=== PATIENT | female | born 1990 | race Caucasian/White ===

== ENCOUNTER 2021-03-15 21:51 | Outpatient (CLI) | payer OTHER ==
[~2021-03-15] VITALS: Ht 162.6 cm; Wt 64.0 kg
[2021-03-15 22:19] VITALS: BP 141/75
[2021-03-15] MEDS ORDERED: PRENTAB9 PO (22:33)
[2021-03-15 22:45] VITALS: BP 125/66
[2021-03-15] MEDS ORDERED: FLUCONAZOLE 100 MG TAB PO ONE (23:10)
--- NOTE | 2021-03-15 23:12 | IPNPDOC ---
Text Note Date of Service The patient was seen on 03/15/21. NOTE 31 yo at 27+3 weeks gestation presented to L&D with the complaint of vaginal spotting this evening and decreased movement. She denies any heavy bleeding or leakage of fluid. She denies any contractions pain. Chaperoned by RN Vitals - VSS, afebrile, normotensive, non tachycardic General - AAXO3, laying in bed, NAD Abdomen - Gravid uterus appropriate size for gestational age. No fundal tenderness Pelvic - Normal external genitalia. Speculum inserted into the vagina and the cervix was visualized. Cervix closed. White discharge noted in vault. No bleeding or blood. Swab obtained. Speculum removed. Cervix cl/thick/high to digital exam. FHR tracing - Cat I and appropriate for gestational age with moderate variability, 10X10 accels, no decels Bedside TAUS ( anatomy not assessed): Viable SIUP in cephalic presentation. +FCA. ARTURO 18.2cm. +gross movement. Microscopy - Notable for yeast. UA - Clean catch, 2+ bacteria Diflucan X1 PO given for yeast infection. UA suspicious for UTI. Will order script of EVERFANSd to pick up driver at [place] tomorrow while we await culture results. Patient felt movement in triage and was reassured. Reassuring tracing and normal ARTURO. No signs of labor. No blood or active bleeding, however given her spotting and Rh negative status she will go to the lab tomorrow for Rhogam draw. Order is already in place. Follow up in the office already scheduled for next week. She will be contacted when Rhogam injection is ready. Discharged with return precautions. All questions answered. 40 minutes SARAHI Murphy DO Mar 15, 2021 23:12
== END 2021-03-15 23:38 | disposition home or self-care (01) ==
LOC: M LDO 21:51
PROVIDERS: ATTEND Obstetrics & Gynecology
DX: O36.8120 Decreased fetal movements, second trimester, not applicable or unspecified (principal); Z3A.27 27 weeks gestation of pregnancy; O23.42 Unspecified infection of urinary tract in pregnancy, second trimester
CPT/HCPCS: 59025; 76815; 81001; 87086; G0378; G0463

== ENCOUNTER 2021-06-16 23:37 | Inpatient (IN) | payer OTHER ==
[~2021-06-16] VITALS: Ht 162.6 cm; Wt 72.5 kg
[~2021-06-16 23:37] MED LIST: PRENTAB9 PO
[2021-06-17] VITALS (27 sets, daily range): BP systolic 106–159; BP diastolic 50–78
[2021-06-17] MEDS ORDERED: HOME MED LIST COMPLETE! XX SCH
[2021-06-17 00:45] LABS: HEMATOCRIT 36.8 % (36.0-47.0); HEMOGLOBIN 12.8 g/dl (12.0-15.5); MEAN CORPUSCULAR HEMOGLOBIN 30.5 pg (27.0-33.0); MEAN CORPUSCULAR HGB CONC 34.8 g/dl (32.0-36.5); MEAN CORPUSCULAR VOLUME 87.6 fl (80.0-96.0); PLATELET COUNT, AUTOMATED 170 10^3/uL (150-450); WHITE BLOOD COUNT 11.9 10^3/uL (4.0-10.0)
[2021-06-17] MEDS ORDERED: PENICILLIN G POTASSIUM IV 5 MU in D5W MINI-BAG PLUS 100 ML IV STA (01:41)
[2021-06-17] MEDS ORDERED: LACTATED RINGER'S 1000 ML IV STA (01:41)
[2021-06-17] MEDS ORDERED: OXYTOCIN DRIP 30 UNITS in IV 1 EA IV PRN (01:45)
[2021-06-17] MEDS ORDERED: LIDOCAINE 1% MDV 20ML VIAL INFIL PRN (01:45)
[2021-06-17] MEDS ORDERED: FENTANYL 2MCG/ML ROPIVACAINE 0.2% IN 0.9% NACL 100ML IVBAG As Ordered ONE (02:15)
--- NOTE | 2021-06-17 02:39 | HPEPDOC ---
Obstetrical History & Physical General Date of Admission Jun 17, 2021 at 00:15 History of Present Illness Pt presented to labor and delivery with c/o regular contractions and SROM with meconium. Chief Complaint: Contractions, term, Rupture of membranes Information Provided By: Patient Age: 31 : 3 Term: 0 Pre-term: 0 Abortions: 2 Livin Care Care: Good Care Dating Final EDC: Jun 11, 2021 Final EDC for Daily Update: Jun 11, 2021 Final EDC by: LMP LMP: Sep 04, 2020 Estimated Date of Confinement: Jul 11, 2021 EGA at Admission: 40 (+5) Antepartum Course Diagnos(e)s Gilbert syndrome Height (inches): 64 Pre- weight (lbs.): 111 Admission Weight (lbs.): 160 Change in Weight (lbs.): 49 Past Medical History Past Obstetrical History : Past Obstetrical History: Multigravida (2018 11wk SAB, 2018 5wk SAB) 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: 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 (x2) Past Medical History Medical History Gilbert Syndrome RH negative Surgical History: Dilatation and Curettage, [place] teeth Family History Significant Family History: Hypertension (father, MGF), Vascular disease (PGM) Social History Marital Status: Family situation: Spouse/partner home Psychosocial History: No pertinent psych hx * Smoker: non-smoker Alcohol: Denies Drugs: denies Abuse Violence Screening Have you been hit/kicked/slapp: No Have you been sexually assault: No Imunizations Tdap status: current Influenza Status: current Allergies Coded Allergies: No Known Allergies (Unverified , 06/16/21) Medications Scheduled No.137/Iron/Folic Acd ( Vitamin Tablet) 1 Each Tablet, 1 TAB PO DAILY Physical Examination Physical Examination GENERAL: Alert and oriented times three. BREAST: . ABDOMEN: Gravid and non-tender to touch. FETUS: Is vertex (VTX) by sterile vaginal examination (SVE), fetus is vertex (VTX) by Billy. HEART RATE: Regular rate and rhythm. LUNGS: Clear to auscultation (CTA). EXTREMITIES: No edema. No clonus. Deep tendon reflexes (DTRs) + 2. Vital Signs/I&O Vital Signs Date Time Temp Pulse Resp B/P (MAP) Pulse Ox O2 Delivery O2 Flow Rate FiO2 06/17/21 00:23 98.8 78 18 110/68 (82) Laboratory Data 24H LABS Laboratory Tests 2 06/17/21 00:20: Nucleated Red Blood Cells % (auto) 0.0, Coronavirus (COVID-19)(PCR) NEGATIVE 06/17/21 00:35: Serology Scanned Report Hepatitis B Testing CBC/BMP Laboratory Tests 06/17/21 00:20 Urine Culture: No Growth Pertinent Laboratoy Data Blood Type: O- RBC Antibody Screen: Negative HIV: Negative Hepatitis B: Negative Rapid Plasma Reagin: Nonreactive Rubella: Immune Varicella: Immune Chlamydia/Gonorrhea: Positive Group B Streptococcus: Positive Cystic Fibrosis: Negative Glucose Tolerance Test: 127 Anatomy Ultrasound Placenta Location: Posterior Normal Anatomy: No Placenta Previa: No Vaginal Examination Dilation: 6 cm Effacement: 90% Station: -1 Cervical Consistency: Soft Cervical Position: Middle Presentation: Cephalic presentation Assessment Heart Rate (FHR): 125 Variability: Moderate Accelerations: Positive Decelerations: Other (Deceleration to 95 with breaks in monitoring. Pt repositioned from standing to hands and knees with recovery to baseline.) Tocometer Contractions: Yes Frequency: every 2-5 min. Duration: greater than 60 seconds Strength: palpated as moderate, resting tone palp/soft Multi-drug resistant Organism: No history of MDRO Assessment/Plan Assessment Ronda is a 31-year-old (G)3 para (P)0-0-2-0 at 40+6 weeks by LMP. Presents to Labor and Delivery (L&D) for SROM and contractions at late term. Plan Admit and orient. Automatic Typewriter Inspector and consent. Diet: clear liquids. Group B Streptococcus (GBS) positive. Labs and intravenous (IV) per unit protocol. Lactated Ringers (LR): Bolus 1000 mL, then at 125 mL/hr. Anticipate [normal spontaneous delivery ()]. C-S as appropriate. Labor and Delivery Counseling Continuous efm x2, may have epidural as desired, monitor for change in or maternal status, anticipate vaginal delivery. GLENN BOOKER CNM Jun 17, 2021 02:39
[2021-06-17] MEDS ORDERED: OXYTOCIN 30 UNITS IN 0.9% NaCl 500ML IV BAG (J2590) As Ordered ONE (02:47)
--- NOTE | 2021-06-17 03:05 | IPNPDOC ---
Obstetrical Progress Note Date of Service Jun 17, 2021 Subjective Pt feeling vaginal pressure after positioning from epidural placement. Objective Vital Signs Date Time Temp Pulse Resp B/P (MAP) Pulse Ox O2 Delivery O2 Flow Rate FiO2 06/17/21 00:23 98.8 78 18 110/68 (82) Assessment Heart Rate (FHR): 130 Variability: Moderate Accelerations: Positive Decelerations: Other (Audible deceleration noted with broken monitoring. montor repositioned.) Tocometer Frequency: every 2-2 min. Duration: less than 90 seconds Strength: palpated as strong, resting tone palp/soft Sterile Vaginal Examination Dilation: complete Effacement (%): 100% Station: -1 Assessment and Plan Age: 31 : 3 Term: 0 Pre-term: 0 Abortions: 2 Livin Weeks & Days 40+6 Status: Reassuring Group B Streptococcus: Positive Anticipate: Vaginal Delivery Additional Comments Pt repositioned in high fowlers, monitors repositioned. Lr @125 mL/hr, continuous efm x2, monitor for change in or maternal status, reposition for passive decent, evaluate for change as indicated, anticipate vaginal delivery. GLENN BOOKER CNM Jun 17, 2021 03:05
[2021-06-17] MEDS ORDERED: OXYTOCIN DRIP 30 UNITS in IV 1 EA IV SCH ×2 (04:30→10:10)
--- NOTE | 2021-06-17 05:03 | IPNPDOC ---
Obstetrical Progress Note Date of Service Jun 17, 2021 Subjective Called to the bedside for questionable late decelerations. Pt states feeling occasional pressure. Objective Vital Signs Date Time Temp Pulse Resp B/P (MAP) Pulse Ox O2 Delivery O2 Flow Rate FiO2 06/17/21 00:23 98.8 78 18 110/68 (82) Assessment Heart Rate (FHR): 135 Variability: Moderate Accelerations: Positive Decelerations: Early (Questionable presentce of early vs mild late decelerations. Monitors repositioned to obtain adequate tracing of contrations. Good variability noted throughout tracing with overall reasurring pattern.), Late Tocometer Contractions: Yes Frequency: irregular, every 1-5 min. Duration: other (30-90 second ) Strength: palpated as mild/moderate, resting tone palp/soft Sterile Vaginal Examination Dilation: complete Effacement (%): 100% Station: 0 Postion/Presentation: Cephalic presentation Assessment and Plan Age: 31 : 3 Term: 0 Pre-term: 0 Abortions: 2 Livin EGA at Admission: 40 (+6) Status: Reassuring Group B Streptococcus: Positive Anticipate: Vaginal Delivery Additional Comments Pt attempted to push with several contractions without decent and difficult feeling pressure and coordinating pushing. Pt assisted to reposition to facilitate positioning and decent. Pitocin augmentation advised to regulate frequency and strength of contractions. Pt advised of concern for need for decent, OP presentation, and the need for regular strong contractions to facilitate delivery with expressed understanding. Lr @125mL/hr, continuous efm x2, initiate pitocin augmentation and titrate per protocol, monitor for change in or maternal status, evaluate for change as indicated. Dr. Caldwell notified of current status. Consult OB visual communications instructor as needed. GLENN BOOKER CNM Jun 17, 2021 05:03
[2021-06-17] MEDS: LR 1,000 ML IV SCH ×2 (06:15→09:45)
[2021-06-17] MEDS: PENICILLIN G POTASSIUM IV 2.5 MU in IV 1 EA IV SCH ×2 (06:32→10:00)
[2021-06-17] MEDS ORDERED: RHOGAM 300 MCG (1500 IU) INJ (J2790) IM SCH (10:10)
[2021-06-17] MEDS ORDERED: METHYLERGONOVINE MALEATE 0.2 MG TAB PO PRN (10:10)
[2021-06-17] MEDS ORDERED: MEASLES,MUMPS,RUBELLA VACCINE INJ (MMR-II) (90707) SC SCH (10:10)
[2021-06-17] MEDS ORDERED: EPIDURAL COMMENT XX SCH (10:45)
[2021-06-17] MEDS ORDERED: LACTATED RINGER'S 1000 ML IV PRN (10:45)
[2021-06-17] MEDS ORDERED: REFRIGERATOR IV KEYS XX PRN (10:45)
[2021-06-17] MEDS ORDERED: NALOXONE INJ 0.4MG/1ML VIAL (J2310 PER 1MG) IV PRN (10:45)
[2021-06-17] MEDS ORDERED: EPIDURAL/PCA KEYS XX PRN (10:45)
[2021-06-17] MEDS ORDERED: ePHEDrine SULFATE 25 MG/5 ML(5MG/ML) SYRINGE IV PRN (10:45)
[2021-06-17] MEDS ORDERED: FENTANYL/ROPIVACAINE/NACL BAG 100 ML EPIDURAL SCH (10:45)
[2021-06-17] MEDS ORDERED: ONDANSETRON 4MG/2ML VIAL IV PRN (10:45)
[2021-06-17] MEDS ORDERED: diphenhydrAMINE 50MG/ML VIAL (J1200) IV PRN (10:45)
--- NOTE | 2021-06-17 10:45 | DNPDOC ---
[facility] Delivery Note Delivery Note DATE OF DELIVERY: 17Jun2021 PREDELIVERY DIAGNOSIS: 40-6/7 weeks' gestation and labor. POST DELIVERY DIAGNOSIS: Delivered. PROCEDURE: Spontaneous vaginal delivery. BLASTER HELPER: Va Booker ANESTHESIA: epidural. ESTIMATED BLOOD LOSS: 200 mL. FINDINGS: 8 pound 2 ounce male infant Jeffery, Score 9/9, no nuchal noted. DELIVERY SUMMARY: Patient is a 31-year-old 3 now para 1-0-2-1 who was admitted to labor and delivery for active labor, SROM with meconium on 17Jun2021. Ronda made slow progress with pushing efforts rotating between right lateral, left lateral, and lithotomy positions to facilitate rotation. Tea Goldberg CNM was present for additional support for delivery due to prolonged second stage risks. The head slowly crowned to delivery in OA with restitution to KRISTIN. The right anterior shoulder delivered easily followed by the posterior shoulder and corpus. The infant was placed immediately skin to skin on the maternal abdomen where he was dried and stimulated with a vigorous cry. Pitocin infusion was initiated per protocol. Cord was clamped x2 after pulsation ceased and cut by the FOB. The placenta delivered spontaneously in Bradley presentation with minimal bleeding. The cervix was swept for a small clot and the fundus firmed immediately. Examination revealed and intact perineum, small posterior vaginal wall laceration and bilateral labial extensions. The laceration was repaired with a running suture using 3-0 vic[address] on [address]1. A hitchcock catheter was placed to gravity to allow time for decrease in swelling. Mother and baby entered the recovery phase in stable condition, skin to skin with initiated. VA BOOKER CNM Jun 17, 2021 10:45
[2021-06-17] MEDS: PRENATAL VITAMINS CHEWABLE TABLET PO SCH (10:53)
[2021-06-17] MEDS: IBUPROFEN 800 MG TAB PO PRN ×2 (10:54→18:48)
[2021-06-17] MEDS: DIBUCAINE 1% OINTMENT 30GM TOP PRN (14:20)
[2021-06-17] MEDS: ANUSOL HC CREAM 30GM TOP PRN (14:21)
[2021-06-17] MEDS: ACETAMINOPHEN TAB 650MG DOSE (2X325MG) PO PRN ×2 (17:26→22:03)
[2021-06-17] MEDS: DOCUSATE SODIUM 100MG CAPSULE PO PRN (22:02)
[2021-06-18] MEDS: IBUPROFEN 800 MG TAB PO PRN ×3 (02:29→20:01)
--- NOTE | 2021-06-18 03:09 | IPNPDOC ---
Progress Note Date of Service: Jun 18, 2021 Day#: 1 Progress Note Ms. Man is a 31yo who had an on 06/17/21 at 40+6wks gestation of male. Bilateral labial lacerations were repaired following delivery. S: States she is doing well. Reports pain well controlled, however having generalized soreness. She is ambulating well, tolerating a regular diet, urinating without difficulty, reports normal bowel activities and has no breast or leg pain. States is going well, has lots of colostrum. L ochia is diminishing. Ambulating well, denies dizziness, lightheadedness. O: General: Alert. Well-appearing, in no acute distress. PSYCH: Well groomed. Appropriate affect, normal mood. Conversed easily. Neuro: Oriented to time, place, and person. RESP: Lungs clear to auscultation bilaterally without wheezes, rales or rhonchi. Unlabored breathing. CV: Normal RRR, no murmur, c/w normal . No edema to bilateral upper and lower extremities. Negative calf tenderness. Breast: Soft, filling. No erythema or tenderness. Intact nipples. ABD: Soft, non-tender. BS normal x4 quad. Fundus: Firm U-2, Fundus non-tender. Lochia: small Perineum: well approximated with mild edema. Minimal swelling to hemorrhoids. MSK: legs without calf tenderness or edema bilaterally SKIN: Dry, intact. A/P 31yo G3 P 1 day 1 s/p at 40+6 wks gestation O Negative, RH positive. Still needs RHOGAM. GBS positive- adequately treated RI/ Normal progression, laceration healing well. well with some latch difficulties. Encouraged to hand express. VSS Plans mini-pill for control after discharge. Continue care and comfort measures, tylenol/motrin for pain. Hydrocortisone for hemorrhoids was ordered. Encouraged and ambulation Plan discharge home after 48hrs Discharge medications previously picked up from pharmacy. No new discharge medications ordered. VS, I&O, 24H, Fishbone Vital Signs/I&O Vital Signs Date Time Temp Pulse Resp B/P (MAP) Pulse Ox O2 Delivery O2 Flow Rate FiO2 06/17/21 22:00 97.3 68 18 130/74 (92) 99 Room Air I&O- Last 24 Hours up to 6 AM 06/18/21 05:59 Intake Total 5986.2 ml Output Total 4475 ml Balance 1511.2 ml LUCÍA ZAVALA CNM Jun 18, 2021 03:09
[2021-06-18 06:00] VITALS: BP 112/63
[2021-06-18] MEDS: ACETAMINOPHEN TAB 650MG DOSE (2X325MG) PO PRN ×4 (06:16→21:21)
[2021-06-18] MEDS: PRENATAL VITAMINS CHEWABLE TABLET PO SCH (07:29)
[2021-06-18] MEDS: DIBUCAINE 1% OINTMENT 30GM TOP PRN (07:30)
[2021-06-18] MEDS: ANUSOL HC CREAM 30GM TOP PRN (07:31)
[2021-06-18 17:45] VITALS: BP 141/70
[2021-06-18] MEDS ORDERED: FIORICET TAB PO ONE (18:00)
[2021-06-18] MEDS: DOCUSATE SODIUM 100MG CAPSULE PO PRN (20:00)
[2021-06-18 22:00] VITALS: BP 126/80
[2021-06-19] MEDS: ACETAMINOPHEN TAB 650MG DOSE (2X325MG) PO PRN ×3 (01:41→11:32)
[2021-06-19] MEDS: IBUPROFEN 800 MG TAB PO PRN ×2 (03:55→13:59)
[2021-06-19 06:00] VITALS: BP 121/75
[2021-06-19] MEDS ORDERED: ACET1TAB55 PO (08:07)
[2021-06-19] MEDS ORDERED: DIBU28OI2 TOP (08:07)
[2021-06-19] MEDS ORDERED: IBUP80TA PO (08:07)
--- NOTE | 2021-06-19 08:09 | DS.PDOC ---
Discharge Summary General Date of Admission Jun 17, 2021 at 00:15 Date of Discharge Jun 19, 2021 Discharge Summary HOSPITAL COURSE: Ronda is a 31 yo G3 now P1 who underwent an uncomplicated on 17Jun2021 after being admitted for SROM and labor. Her course was unremarkable. On her day of discharge she met all appropriate discharge criteria. She was ambulating, voiding, tolerating a regular diet, and had minimal lochia. DISCHARGE MEDICATIONS: Please see below. ALLERGIES: Please see below. PHYSICAL EXAMINATION ON DISCHARGE: VITAL SIGNS: Please see below. GENERAL: AAOX3, NAD ABDOMINAL EXAMINATION: Fundus firm at U-2. No fundal tenderness EXTREMITIES: No edema PSYCHIATRIC EXAMINATION: Affect appropriate LABORATORY DATA: Please see below. ACTIVITY: Pelvic rest for 6 weeks DIET: Regular DISCHARGE PLAN: Discharge home DISPOSITION: Discharge home on 19Jun2021 DISCHARGE INSTRUCTIONS: 1. Nothing in the vagina for 6 weeks ITEMS TO FOLLOWUP ON ON OUTPATIENT: 1. Call to schedule a visit for 6 weeks post delivery DISCHARGE CONDITION: Stable. TIME SPENT ON DISCHARGE: Greater than 20 minutes. Sarahi Mart DO Vital Signs/I&Os Vital Signs Date Time Temp Pulse Resp B/P (MAP) Pulse Ox O2 Delivery O2 Flow Rate FiO2 06/19/21 06:00 98.0 59 18 121/75 (90) 98 Room Air Discharge Medications Scheduled No.137/Iron/Folic Acd ( Vitamin Tablet) 1 Each Tablet, 1 TAB PO DAILY, (Reported) Scheduled PRN Acetaminophen (Acetaminophen) 325 Mg Tablet, 650 MG PO Q4HP PRN for PAIN LEVEL 1-5 Dibucaine (Dibucaine) 28 Gm Oint...g., 0 DOSE TOP Q4H PRN for PERINEUM PAIN Ibuprofen (Ibuprofen) 800 Mg Tablet, 800 MG PO Q8HP PRN for PAIN LEVEL 6-10 Allergies Coded Allergies: No Known Allergies (Unverified , 06/16/21) SARAHI MATR DO Jun 19, 2021 08:09
[2021-06-19] MEDS: PRENATAL VITAMINS CHEWABLE TABLET PO SCH (08:16)
[2021-06-19] MEDS ORDERED: FIORICET TAB PO PRN (11:20)
--- NOTE | 2021-06-20 10:08 | IPN ---
PROGRESS NOTE DATE: 06/18/2021 SUBJECTIVE: This patient requested circumcision of her male infant. After discussing risks and benefits of circumcision, the medical, the nonmedical indications, the penile block and aftercare and bleeding, she signed the consent form. All questions were answered. Twenty minute discussion. We await clearance by the supply chain project manager. cc: Kath FORBES M.D.
== END 2021-06-19 14:17 | disposition home or self-care (01) | DRG 807 ==
LOC: M LDO 23:37 → M LDI 06-17 00:15 → M PED 06-17 12:38
PROVIDERS: ADMIT Registered Nurse; ATTEND Registered Nurse
PROC: 10E0XZZ Delivery of Products of Conception, External Approach (ICD-10-PCS; principal; 2021-06-17)
PROC: 0HQ9XZZ Repair Perineum Skin, External Approach (ICD-10-PCS; 2021-06-17)
DX: O48.0 Post-term pregnancy (principal); Z37.0 Single live birth; Z3A.40 40 weeks gestation of pregnancy; O99.824 Streptococcus B carrier state complicating childbirth; O77.0 Labor and delivery complicated by meconium in amniotic fluid; O63.1 Prolonged second stage (of labor); O70.0 First degree perineal laceration during delivery

== ENCOUNTER 2021-06-22 15:03 | Emergency (ER) | payer OTHER ==
[~2021-06-22] VITALS: Ht 162.6 cm; Wt 63.6 kg
[~2021-06-22 15:03] MED LIST changes: -COLA100C5 PO
[2021-06-22] MEDS ORDERED: COLA100C5 PO (15:21)
[2021-06-22 16:34] LABS: BASO % 0.2 % (0.0-1.0); EOS # 0.1 10^3/uL (0.0-0.5); EOS % 0.9 % (0.0-3.0); HEMATOCRIT 37.8 % (36.0-47.0); HEMOGLOBIN 12.9 g/dl (12.0-15.5); LYMPH % 15.7 % (24.0-44.0); MEAN CORPUSCULAR HEMOGLOBIN 30.5 pg (27.0-33.0); MEAN CORPUSCULAR HGB CONC 34.1 g/dl (32.0-36.5); MEAN CORPUSCULAR VOLUME 89.4 fl (80.0-96.0); MONO # 0.5 10^3/uL (0.0-0.8); MONO % 3.7 % (2.0-8.0); NEUTROPHILS # 9.9 10^3/uL (1.5-8.5); NEUTROPHILS % 79.2 % (36.0-66.0); PLATELET COUNT, AUTOMATED 321 10^3/uL (150-450); RED BLOOD COUNT 4.23 10^6/uL (4.00-5.40); WHITE BLOOD COUNT 12.5 10^3/uL (4.0-10.0)
[2021-06-22 16:36] LABS: APPEARANCE, URINE CLEAR (CLEAR); BACTERIA, URINE AUTO 1+ (NEGATIVE); BILIRUBIN, URINE AUTO NEGATIVE (NEGATIVE); BLOOD, URINE BLOOD 2+ (NEGATIVE); COLOR, URINE STRAW (YELLOW); GLUCOSE, URINE (UA) AUTO NEGATIVE (NEGATIVE); KETONE, URINE AUTO NEGATIVE (NEGATIVE); LEUKOCYTE ESTERASE, URINE AUTO TRACE (NEGATIVE); NITRITE, URINE AUTO NEGATIVE (NEGATIVE); PROTEIN, URINE AUTO NEGATIVE (NEGATIVE); RBC, URINE AUTO 3 /HPF (0-3); SPECIFIC GRAVITY URINE AUTO 1.004 (1.002-1.035); SQUAMOUS EPITHELIAL CELL UR AU 0 /HPF (0-6); UROBILINOGEN, URINE AUTO 0.2 mg/dL (0.0-2.0); WBC, URINE AUTO 2 /HPF (0-3)
[2021-06-22 16:48] LABS: INR 0.87; PARTIAL THROMBOPLASTIN TIME 27.9 SECONDS (25.9-37.0); PROTHROMBIN TIME 12.2 SECONDS (12.7-14.5)
[2021-06-22 17:07] LABS: ALBUMIN 3.1 GM/DL (3.2-5.2); ALT/SGPT 54 U/L (12-78); BILIRUBIN,DIRECT 0.1 MG/DL (0.0-0.2); BILIRUBIN,TOTAL 0.6 MG/DL (0.2-1.0); BLOOD UREA NITROGEN 13 MG/DL (7-18); CALCIUM LEVEL 9.5 MG/DL (8.5-10.1); CARBON DIOXIDE LEVEL 26 MEQ/L (21-32); CHLORIDE LEVEL 108 MEQ/L (98-107); CREATININE FOR GFR 0.71 MG/DL (0.55-1.30); GLOMERULAR FILTRATION RATE > 60.0 (>60); GLUCOSE, FASTING 84 MG/DL (70-100); MAGNESIUM LEVEL 2.4 MG/DL (1.8-2.4); POTASSIUM SERUM 4.2 MEQ/L (3.5-5.1); SODIUM LEVEL 140 MEQ/L (136-145); TOTAL PROTEIN 6.8 GM/DL (6.4-8.2)
[2021-06-22] MEDS ORDERED: KETOROLAC 30 MG/ML 1ML VIAL IV ONE (19:10)
[2021-06-22] MEDS ORDERED: NS 1,000 ML IV ONE (19:10)
[2021-06-22] MEDS ORDERED: METOCLOPRAMIDE INJ 10MG/2ML VIAL (J2765 PER 1) IV ONE (19:15)
[2021-06-22 21:02] VITALS: BP 131/82
== END 2021-06-22 21:11 | disposition home or self-care (01) ==
LOC: M ED 15:03
DX: O89.4 Spinal and epidural anesthesia-induced headache during the puerperium (principal); Z79.899 Other long term (current) drug therapy
CPT/HCPCS: 70450; 80048; 80076; 81001; 83735; 84550; 85025; 85610; 85730; 87086; 96361; 96374; 96375; 99283; J1885; J2765

== ENCOUNTER → 2021-06-22 | Outpatient (CLI) | payer OTHER ==
[~2021-06-22] MED LIST changes: +ACET1TAB55 PO; +COLA100C5 PO; +DIBU28OI2 TOP; +IBUP80TA PO
[2021-06-22 22:35] VITALS: BP 143/83
== END ==
LOC: M OPP 20:40
PROVIDERS: ATTEND Anesthesiology
DX: R51.9 Headache, unspecified (principal)